=== PATIENT | male | born 1970 | race American Indian/Alaskan Native ===

== ENCOUNTER 2018-07-05 01:08 | Emergency (ER) | payer OTHER, BC ==
[2018-07-05] MEDS ORDERED: MOTRIN ONE (03:55)
[2018-07-05 04:10] VITALS: BP 148/98
[2018-07-05] MEDS ORDERED: MOTRIN PO ONE (04:10)
--- NOTE | 2018-07-05 05:21 | XRay Report ---
FINAL REPORT PROCEDURE: XR TIBIA FIBULA 2V LT TECHNIQUE: LEFT tibia and fibula radiographs, AP and lateral views. CPT 66808 HISTORY: left distal tib/fib pain COMPARISON: No prior studies are available for comparison. FINDINGS: Fracture (s) and/or Dislocation(s): None . Joint space(s): There are degenerative changes of the knee and ankle joints.. Soft tissues: There is generalized soft tissue swelling. Bone mineralization: Normal . Foreign bodies: None . IMPRESSION: There are no fractures.. There are degenerative changes of the knee and ankle joints.. There is generalized soft tissue swelling.
[2018-07-05] MEDS ORDERED: XYLOCAINE 2%/ EPI 1:200,000 INFILTRATI ONE (07:17)
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
== END 2018-07-05 08:37 | disposition home or self-care (01) ==
LOC: ED 01:08
DX: S81.012A Laceration without foreign body, left knee, initial encounter (principal); I10 Essential (primary) hypertension; E11.9 Type 2 diabetes mellitus without complications; E78.00 Pure hypercholesterolemia, unspecified; V49.49XA Driver injured in collision with other motor vehicles in traffic accident, initial encounter; Y93.89 Activity, other specified; Y92.89 Other specified places as the place of occurrence of the external cause; Y99.8 Other external cause status